=== PATIENT | male | born 1965 | race Caucasian/White ===

== ENCOUNTER → 2020-09-01 07:19 | Outpatient (CLI) | payer BC, SELFPAY ==
[2020-09-01 08:46] LABS: Alanine Aminotransferase 25 IU/L (<50); Albumin 4.5 g/dL (3.5-5.0); Albumin Globulin Ratio 1.8 (1.0-2.8); Alkaline Phosphatase 62 U/L (38-126); Aspartate Aminotransferase 35 IU/L (17-59); BUN Creatinine Ratio 24.1 (6-22); Bilirubin Total 0.5 mg/dL (0.2-1.3); Blood Urea Nitrogen 27 mg/dL (9-20); Calcium 9.6 mg/dL (8.4-10.2); Carbon Dioxide 31 mmol/L (22-32); Chloride 104 mmol/L (98-107); Cholesterol 174 mg/dL (140-199); Estimated Glomerular Filt Rate > 60.0 mL/min (>60); Globulin 2.5 g/dL (1.7-4.1); Glucose 102 mg/dL (70-100); HDL Cholesterol 43 mg/dL (40-60); HEMOLYSIS < 15 (0-50); LDL Cholesterol Calculated 116 mg/dL (<100); Potassium 4.6 mmol/L (3.4-5.1); Sodium 141 mmol/L (137-145); Triglycerides 75 mg/dL (35-150)
[2020-09-01 09:21] LABS: Prostate Specific Antigen Scrn 0.522 ng/mL (0.1-4.0)
== END ==
PROVIDERS: PCP Internal Medicine; Referring Provider Internal Medicine; Visit Provider Internal Medicine
DX: Z13.1 Encounter for screening for diabetes mellitus (principal); Z13.220 Encounter for screening for lipoid disorders; Z13.6 Encounter for screening for cardiovascular disorders; Z12.5 Encounter for screening for malignant neoplasm of prostate
CPT/HCPCS: 36415; 80053; 80061; G0103

== ENCOUNTER → 2021-02-17 07:49 | Outpatient (CLI) | payer BC, SELFPAY ==
[2021-02-17] MEDS: COVID-19 VACC #1, MRNA(MOD) 100 MCG/0.5 ML VIAL IM (07:57)
== END ==
PROVIDERS: PCP Internal Medicine; Visit Provider Internal Medicine
DX: Z23 Encounter for immunization (principal)
CPT/HCPCS: 0011A; 91301

== ENCOUNTER → 2021-03-17 07:35 | Outpatient (CLI) | payer BC, SELFPAY ==
[2021-03-17] MEDS: COVID-19 VACC #2, MRNA(MOD) 100 MCG/0.5 ML VIAL IM (07:48)
== END ==
PROVIDERS: PCP Internal Medicine; Visit Provider Internal Medicine
DX: Z23 Encounter for immunization (principal)
CPT/HCPCS: 0012A; 91301

== ENCOUNTER → 2021-09-01 07:11 | Outpatient (CLI) | payer BC, SELFPAY ==
[2021-09-01 08:48] LABS: Prostate Specific Antigen Scrn 0.539 ng/mL (0.1-4.0)
== END ==
PROVIDERS: PCP Internal Medicine; Referring Provider Internal Medicine; Visit Provider Internal Medicine
DX: Z12.5 Encounter for screening for malignant neoplasm of prostate (principal)
CPT/HCPCS: 36415; G0103

== ENCOUNTER → 2022-04-12 14:00 | Outpatient (CLI) | payer BC, SELFPAY ==
[2022-04-12 15:39] LABS: COVID19 -Nasal RAPID Negative (Negative)
== END ==
PROVIDERS: PCP Internal Medicine; Visit Provider Surgery
DX: Z01.812 Encounter for preprocedural laboratory examination (principal); Z20.822 Contact with and (suspected) exposure to COVID-19
CPT/HCPCS: 87635; C9803

== ENCOUNTER 2022-04-13 07:42 | Day surgery (SDC) | payer BC, SELFPAY ==
[2022-04-13] VITALS (7 sets, daily range): BP systolic 108–147; BP diastolic 70–87; PULSE 47–57; RESP 15–19; TEMP 36.5–37.1; O2SAT 99–100; BMI 25.6
--- NOTE | 2022-04-13 | PATH_ITS ---
[facility] Accession Number: [id number] . 01 Material submitted: . colon - DESCENDING COLON POLYP . 01 Diagnosis: Descending Colon, Polyp, Biopsy: Tubular adenoma. MRV 04/18/2022 1330 Local . 01 Electronically signed: . Cara Thomas MD, Pathologist NPI- [id number] . 01 Gross description: . DESCENDING COLON POLYP: Received in formalin is 1 fragment(s) of rivera, soft tissue measuring 0.5 x 0.2 x 0.2 cm submitted entirely in 1 cassette(s) /CPE 04/15/2022 0306 Local . 01 Pathologist provided ICD-10: D12.4 . 01 CPT . 261894 Specimen Comment: A courtesy copy of this report has been sent to [phone] Performed at: 01 [facility] [address] [place] [address] [id number] MD Jabari Carrero MD Phone: [phone]
[2022-04-13] MEDS: LACTATED RINGERS 1,000 ML 42 ML IV (08:51)
--- NOTE | 2022-04-13 09:37 | PM.HP.1 ---
History of Present Illness History of Present Illness Date Patient Seen: 04/13/22 Time Patient Seen: 09:37 Chief complaint: SDC Narrative: Randy is a 56-year-old man who had a colonoscopy about 6 years ago. He reports no polyps removed but he was recommended to come back for colonoscopy because of possible family history. He states that his grandmother had colon cancer and and his mother had colon cancer at age 88. Patient History Medical History Aortic regurgitation (~2004) Arrhythmia (~2009) Foot pain (~1999) Hearing loss Wears glasses Family & Social History Family History Father Coronary artery disease Mother Breast cancer genetic susceptibility Colon cancer Social History: household members friend(s) Tobacco & Substance use: Smoking Status Never smoker alcohol intake current alcohol intake frequency 0-2 drinks per day Substance Use Type does not use Meds Home Medications and Allergies Home Medications Medication Instructions Recorded Confirmed Type sodium sul 1.479 gram-potas ch See Rx Instructions PO PER PKG DIR 04/03/22 Rx 0.188 gram-magnes sul 0.225 gram #24 tab tablet (Sutab) Allergies Allergy/AdvReac Type Severity Reaction Status Date / Time No Known Drug Allergies Allergy Verified 04/13/22 08:27 Exam Vital Signs (past 8 hours): - 04/13/22 08:28 Temperature 97.7 F Pulse Rate 47 L Respiratory Rate 16 Blood Pressure 147/87 H Pulse Oximetry 100 Oxygen Delivery Method Room Air Const General: healthy appearing Resp Effort & Inspection: normal respiratory effort Assessment & Plan Assessment and plan (1) Colon cancer screening: Status: Acute Plan We reviewed the risks and benefits of colonoscopy. We will proceed with colonoscopy. COVID-19 COVID-19 status: Negative Result date/Date tested (Pos, Neg/Pending): 04/12/22 Time Spent With Patient Critical Care time: I spent a total of [] minutes of critical care time on this patient's care today; this time is exclusive of procedural time.
[2022-04-13] MEDS: fentaNYL 250 MCG/5 ML INJ 100 MCG IV (09:56)
[2022-04-13] MEDS: MIDAZOLAM 5 MG/5 ML VIAL 6 MG IV (09:56)
--- NOTE | 2022-04-13 10:06 | PM.OP.COLON ---
Operative Date/Time/Diagnoses Date of procedure: 04/13/22 Time of procedure: 10:06 Pre-op diagnosis: Colon cancer screening Post-op diagnosis: same Procedure & Clinicians Study performed: Colonoscopy Same procedure as scheduled: Yes Surgeon: Tal Grey Procedure Notes Procedure in detail: Surgeon: Tal Grey MD Procedure: The patient was brought to the endoscopy suite, placed in left lateral decubitus position. The patient was connected to monitoring devices. A time-out was performed. Sedation was administered. Once the patient was adequately sedated, a digital rectal exam was performed and was normal. The scope was then inserted and advanced to the cecum where the appendiceal orifice was identified and photographed. The scope was then slowly withdrawn over greater than 6 minutes. Mucosa was thoroughly inspected. There was 1 small polyp roughly 5 mm in the descending colon removed with cold snare. The scope was retroflexed in the rectum. No abnormalities were noted. The scope was straightened and removed. The patient was awakened and brought to recovery. Versed: 6 mg Fentanyl: 100 mcg EBL: 2 mL Findings: Small polyp in the descending colon, roughly 5 mm Scope withdrawal time: 10 Sedation minutes: 20 Post-procedure Recommendations: Will call with biopsy results Disposition: PACU
== END 2022-04-13 10:47 | disposition home or self-care (01) ==
PROVIDERS: PCP Internal Medicine; Referring Provider Surgery; Visit Provider Surgery
PROC: 0DJD8ZZ Inspection of Lower Intestinal Tract, Via Natural or Artificial Opening Endoscopic (ICD-10-PCS; CPT 45378; principal; 2022-04-13 09:15)
DX: Z12.11 Encounter for screening for malignant neoplasm of colon (principal); D12.4 Benign neoplasm of descending colon
CPT/HCPCS: 45385; 99152; J2250; J3010